=== PATIENT | male | born 1985 | race Caucasian/White ===

== ENCOUNTER 2017-01-06 07:16 | Emergency (ER) | payer OTHER ==
[~2017-01-06] VITALS: Ht 182.9 cm; Wt 105.2 kg
[~2017-01-06 07:16] MED LIST: BENZ0.5T9 PO; BENZ1TAB2 PO; BUPR100T8 PO; HLD5 PO; PALI3TAB PO; SERT1TAB68 PO
[2017-01-06 07:24] VITALS: TEMP 36.8; Ht 182.9 cm; Wt 105.2 kg
[2017-01-06] MEDS ORDERED: IBUPROFEN 600 MG TAB PO STA (07:32)
--- NOTE | 2017-01-06 07:38 | EMERGENCY ROOM VISIT NOTE ---
ED Visit Note First contact with patient: 07:25 CHIEF COMPLAINT: Right Ankle pain HISTORY OF PRESENT ILLNESS: This 31-year-old male patient presents to the emergency department, ambulatory but on crutches, with his father, approximately 12 hours after sustaining an injury to the right ankle and foot with a twisting, inversion motion while playing tag. The patient complains of pain along the inside of the ankle, and swelling along the outside of the ankle. The patient denies pain of the foot. The patient rates the pain as sharp, shooting and 5/10. The patient is able to bear weight on the foot, however this causes significant discomfort. Constant pain, worse with movement , weight bearing, and the dependent position. No knee pain, the patient is able to move their toes. No numbness or weakness of the foot, no laceration. The patient has had at least 2 previous fractures to this ankle. The patient has taken 400 mg ibuprofen last evening for the pain. The patient has been using ice and elevating the ankle throughout the night. The patient denies any other injury. REVIEW OF SYSTEMS: A 6 system review of systems was completed with positives and pertinent negatives listed in the HPI. ALLERGIES: None MEDICATIONS: Sertraline, Wellbutrin, Abilify PMH: Depression SOCIAL HISTORY: As lives locally with family. He denies drug, alcohol use. The patient does report smoking approximately one half pack cigarettes per day. PHYSICAL EXAM: Vital Signs: Reviewed Nurse's notes, vital signs stable. GENERAL : This is a 31-year-old white male, no acute distress, but appears in pain, well -developed, well-nourished. MENTAL STATUS: Alert, oriented to person place and time, and cooperative. MUSCULOSKELETAL: The right ankle is swollen and mildly tender over the lateral malleolus, but the skin is intact and there is no ligamentous instability. There is also mild tenderness over the medial malleolus. There is no fifth metatarsal tenderness. There is no tenderness over the rest of the foot. There is no calf or tibia/fibular tenderness. There is no visual deformity. The foot and toes are warm and well-perfused. Dorsalis pedis pulse 2+. Sensation to pain and light touch is intact. Capillary refill less than 2 seconds. RADIOLOGY: X-ray right ankle: FINDINGS: No acute fracture or dislocation within the right ankle. Well-corticated ossific densities adjacent to the medial and lateral malleolus is consistent with old avulsion injuries. Diffuse soft tissue swelling. No radiopaque foreign bodies. IMPRESSION: Diffuse soft tissue swelling. No acute fracture or dislocation within the right ankle. EMERGENCY DEPARTMENT COURSE: I examined the patient. The patient was given an ice pack and 600 mg ibuprofen for swelling. X-rays of the right ankle were reviewed by myself and read by radiology and reveal no acute fracture or dislocation. A gel ankle splint was applied to the ankle under my direction and the position was satisfactory. Neurovascular status was rechecked and intact. The patient was instructed on the use of crutches, which he has in his possession. The patient was discharged home in good condition. DIFFERENTIAL DIAGNOSIS: Sprain, strain, contusion, fracture, effusion, and others DIAGNOSIS: Right ankle sprain DISCHARGE INSTRUCTIONS: You have been treated in the Emergency Department for an Ankle sprain. For pain control, you can use the following [id number]-ygmhwrc medicines (if >12 yo): Ibuprofen(Motrin, Advil) may be used for fever or pain. Use 600mg every six hours as needed. Take with food. Avoid using more than 2400mg in a 24 hour period. Do not use 2400mg per day for more than three consecutive days without physician direction. Prolonged inappropriate use can lead to stomach upset or ulcers. You were given a prescription for this medication. (AND/OR) Acetaminophen(Tylenol) may be used for fever or pain. Use 1000mg every six to eight hours as needed. Avoid using more than 3000mg in a 24 hour period. If this is a recent injury (<24 hrs), ice can be applied to the area of pain for the first 3 days to help decrease pain and inflammation. You have been provided the number for an Orthopaedic Surgeon. You should call this number as soon as possible to establish a follow-up visit from today's Emergency Department visit. Keep the ankle brace/splint in place until you are able to bear weight on the ankle without pain. You may remove the splint and to shower. Use the crutches you have at home to keep ALL weight off of the ankle until weight bearing is tolerable. Return to the Emergency Department if your current symptoms worsen despite treatment course outlined above, or if you develop any of the following symptoms : intractable pain despite aforementioned treatment course or new onset of numbness or tingling of the foot. 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 Current/Historical Medications Scheduled Aripiprazole (Abilify), 1 TAB PO DAILY Bupropion (Wellbutrin Sr), 1 TAB PO DAILY Sertraline (Zoloft), 1 TAB PO DAILY Scheduled PRN Ibuprofen Tab (Motrin), 600 MG PO Q6H PRN for Pain Allergies Coded Allergies: No Known Allergies (Unverified , 01/06/17) Vital Signs Date Time Temp Pulse Resp B/P (MAP) Pulse Ox O2 Delivery O2 Flow Rate FiO2 01/06/17 09:02 73 16 154/94 94 Room Air 01/06/17 07:24 36.8 71 18 154/99 95 Room Air Medications Administered Medications (Trade) Dose Ordered Sig/David Route Start Time Stop Time Status Last Admin Dose Admin Ibuprofen (Motrin Tab) 600 mg NOW STAT PO 01/06/17 07:32 01/06/17 07:33 DC 01/06/17 07:32 600 MG Departure Information Impression Primary Impression: Right ankle sprain Dispostion Home / Self-Care Condition GOOD Prescriptions Ibuprofen Tab (MOTRIN) 600 Mg Tab 600 MG PO Q6H Y for Pain, #60 TAB Prov: Jessi Zepeda PA-C 01/06/17 Referrals Fernando Wang M.D. (PCP) [facility] Patient Instructions ED Sprain Ankle, [facility] Additional Instructions You have been treated in the Emergency Department for an Ankle sprain. For pain control, you can use the following [id number]-[id number] medicines (if >12 yo): Ibuprofen(Motrin, Advil) may be used for fever or pain. Use 600mg every six hours as needed. Take with food. Avoid using more than 2400mg in a 24 hour period. Do not use 2400mg per day for more than three consecutive days without physician direction. Prolonged inappropriate use can lead to stomach upset or ulcers. You were given a prescription for this medication. (AND/OR) Acetaminophen(Tylenol) may be used for fever or pain. Use 1000mg every six to eight hours as needed. Avoid using more than 3000mg in a 24 hour period. If this is a recent injury (<24 hrs), ice can be applied to the area of pain for the first 3 days to help decrease pain and inflammation. You have been provided the number for an Orthopaedic Surgeon. You should call this number as soon as possible to establish a follow-up visit from today's Emergency Department visit. Keep the ankle brace/splint in place until you are able to bear weight on the ankle without pain. You may remove the splint and to shower. Use the crutches you have at home to keep ALL weight off of the ankle until weight bearing is tolerable. Return to the Emergency Department if your current symptoms worsen despite treatment course outlined above, or if you develop any of the following symptoms : intractable pain despite aforementioned treatment course or new onset of numbness or tingling of the foot. Problem Qualifiers Primary Impression: Right ankle sprain Encounter type: initial encounter Involved ligament of ankle: unspecified ligament Qualified Codes: S93.401A - Sprain of unspecified ligament of right ankle, initial encounter
[2017-01-06] MEDS ORDERED: SERT25TA PO (07:45)
[2017-01-06] MEDS ORDERED: BUPR100T8 PO (07:45)
[2017-01-06] MEDS ORDERED: ABL/5 PO (07:45)
--- NOTE | 2017-01-06 08:35 | DIAGNOSTIC IMAGING REPORT ---
RIGHT ANKLE 3 VIEWS HISTORY: right ankle pain/swelling (pain medial, swelling lateral) Right COMPARISON: None. FINDINGS: No acute fracture or dislocation within the right ankle. Well-corticated ossific densities adjacent to the medial and lateral malleolus is consistent with old avulsion injuries. Diffuse soft tissue swelling. No radiopaque foreign bodies. IMPRESSION: Diffuse soft tissue swelling. No acute fracture or dislocation within the right ankle. Electronically signed by: Jay Brunson M.D. 01/06/2017 8:37 AM Dictated Date/Time: 01/06/2017 8:33 AM
[2017-01-06] MEDS ORDERED: IBUP-1427 PO (08:43)
[2017-01-06 09:02] VITALS: BP 154/94; PULSE 73; O2SAT 94
== END 2017-01-06 09:03 | disposition home or self-care (01) ==
LOC: C.EDB 07:17 → C.EDA 09:03
DX: S93.401A Sprain of unspecified ligament of right ankle, initial encounter (principal); X50.0XXA Overexertion from strenuous movement or load, initial encounter; Y93.89 Activity, other specified; F17.210 Nicotine dependence, cigarettes, uncomplicated; F32.9 Major depressive disorder, single episode, unspecified; Z79.899 Other long term (current) drug therapy